=== PATIENT | female | born 1995 | race Caucasian/White ===

== ENCOUNTER → 2020-12-01 12:57 | Outpatient (CLI) | payer OTHER, SELFPAY ==
--- NOTE | ~2020-12-01 | US_ITS ---
EXAMINATION: US breast RT limited HISTORY: Mastodynia of the outer right breast TECHNIQUE: Limited ultrasound is performed in the outer right breast the area of patient's pain FINDINGS: There is no evidence of focal abnormal cystic or solid mass in the vicinity of the patient' s breast pain. IMPRESSION: No specific sonographic correlate is identified for the patient's right breast pain. Further evaluati on at this time should be based on clinical assessment. Continued follow-up physical examination is r ecommended. BI-RADS Category 1: Negative Reviewed, dictated and finalized at location A. IMPRESSION: No specific sonographic correlate is identified for the patient's right breast pain. Further evaluation at this time should be based on clinical assessment. C ontinued follow-up physical examination is recommended. BI-RADS Category 1: Negative
== END ==
PROVIDERS: Visit Provider Obstetrics & Gynecology
DX: N64.4 Mastodynia (principal)
CPT/HCPCS: 76642

== ENCOUNTER 2021-02-08 14:38 | Emergency (ER) | payer OTHER, SELFPAY ==
[2021-02-08 14:46] VITALS: BP 127/75; PULSE 83; RESP 16; TEMP 37.1; O2SAT 99
--- NOTE | 2021-02-08 14:52 | ED.URI ---
HPI - URI/Sore Throat General Stated Complaint: Coughing, Shortness of breath Time Seen by Provider: 02/08/21 14:52 Source: patient and RN notes reviewed History of Present Illness HPI Narrative: Patient is a 25-year-old female who presents the urgent care with complaints of a cough for 1 week. Patient states that she has been taking Jennifer during the day for the cough assuming it was related to her allergies . Patient denies of any fevers, nausea, vomiting, chest tightness or shortness of breath. Patient states the cough does keep her up at night. Denies of any use of syuj-stp-jkziibk cough medications. Denies of any other illness in the home. No other acute complaints. No acute distress noted. Patient aware of the plan of care. Some parts of this dictation were generated by voice recognition software and may contain typographical and/or grammatical inaccuracies. Related Data Allergies Allergy/AdvReac Type Severity Reaction Status Date / Time No Known Allergies Allergy Verified 02/08/21 14:52 Review of Systems Review of Systems: Narrative: CONSTITUTIONAL: Denies fever, chills, or sweats. EYES: Denies visual changes, redness, or discharge. ENT: Denies rhinorrhea, congestion, sore throat, or otalgia. CARDIOVASCULAR: Denies chest pain, palpitations, or edema. RESPIRATORY: Reports of cough without shortness of breath GASTROINTESTINAL: Denies abdominal pain, nausea, vomiting, or diarrhea. GENITOURINARY: Denies dysuria or hematuria. SKIN: Denies rash or itching. MUSCULOSKELETAL: Denies back pain, joint pain, or myalgia. NEUROLOGIC: Denies headache, numbness, or weakness. All other systems reviewed are negative, except as documented in HPI. [facility] Past Medical History Medical History (Updated 02/08/21 @ 15:06 by KATELYN Porras) Asthma Cataracts, bilateral Gestational diabetes Scoliosis Surgical History Surgical History S/P breast lumpectomy 2018 (benign) Family History Family History Mother Hypoglycemia Sibling Bipolar disorder Social History Social History (Updated 06/26/19 @ 10:14 by KATELYN Arboleda) Smoking status: Never smoker Comments At the time of my signature, I reviewed and agree with the nursing past medical, surgical, social, and family history. There is no relevant family history pertinent to the patient complaint. Exam Narrative: Exam Narrative: GENERAL: This is a well-nourished, well-developed patient, in no apparent distress. HEAD: normocephalic, atraumatic. EYES: PERRL. Sclera clear/white. Vision is grossly intact. EARS: External ears normal, auditory canals clear and without drainage, TMs normal without perforation. Hearing grossly intact. NOSE: External nose normal with no obvious nasal discharge, nares without redness, no rhinorrhea. THROAT: Mucous membranes moist, posterior pharynx clear. NECK: Neck supple, non-tender without lymphadenopathy, masses or thyromegaly. CARDIOVASCULAR: Regular rate and rhythm without murmurs, gallops, or rubs. RESPIRATORY: Clear to auscultation. Breath sounds equal bilaterally. No wheezes, rales, or rhonchi. SKIN: warm, intact with no suspicious lesions or rash, good texture and turgor. NEURO: awake, alert, and oriented to person, place and time. There were no obvious focal neurologic abnormalities. EXTREMITIES: No clubbing, cyanosis, or edema. Course Vital Signs Vital signs: Vital Signs Temperature 98.7 F 02/08/21 14:46 Pulse Rate 83 02/08/21 14:46 Respiratory Rate 16 02/08/21 14:46 Blood Pressure 127/75 02/08/21 14:46 Pulse Oximetry 99 02/08/21 14:46 Temperature 98.7 F 02/08/21 14:46 Pulse Rate 83 02/08/21 14:46 Respiratory Rate 16 02/08/21 14:46 Blood Pressure 127/75 02/08/21 14:46 Pulse Oximetry 99 02/08/21 14:46 Reviewed MDM - URI/Sore Throat MDM Narrative Medical decision m
== END 2021-02-08 15:10 | disposition home or self-care (01) ==
PROVIDERS: Emergency Provider Nurse Practitioner Family; PCP Internal Medicine
DX: R05 Cough (principal); J45.909 Unspecified asthma, uncomplicated; H26.9 Unspecified cataract; M41.9 Scoliosis, unspecified
CPT/HCPCS: 99213; G0463

== ENCOUNTER 2022-03-28 10:48 | Outpatient (RCR) | payer BC, SELFPAY ==
[2022-03-28 11:16] LABS: Hematocrit 34.4 % (37.0-47.0); Hemoglobin 11.7 g/dL (12.0-15.0)
[2022-03-28 13:36] LABS: HIV 1/2 Ab P24 Ag 8.89
[2022-03-28] MEDS: RHO(D) IMMUNE GLOBULIN 300 MCG/2 ML SYRINGE IM (15:55)
[2022-03-29 07:08] LABS: HIV 1/2 Ab P24 Ag Result Reactive (Negative)
[2022-03-29 07:44] LABS: HIVc Retest 1 9.02; HIVc Retest 2 9.04
[2022-04-01 19:37] LABS: HIV 1 2 Ag Ab 4th Gen w Rflxs Non-reactive (Non-reactive)
== END 2022-06-26 23:59 | disposition home or self-care (01) ==
LOC: ANHLAB 10:48
PROVIDERS: PCP Internal Medicine; Visit Provider Advanced Practice Midwife
DX: Z29.13 Encounter for prophylactic Rho(D) immune globulin (principal); Z11.4 Encounter for screening for human immunodeficiency virus [HIV]; O36.0190 Maternal care for anti-D [Rh] antibodies, unspecified trimester, not applicable or unspecified; E03.9 Hypothyroidism, unspecified; Z3A.00 Weeks of gestation of pregnancy not specified
CPT/HCPCS: 36415; 84443; 85014; 85018; 85461; 86703; 87389; 90384; 96372; G0432; J2790

== ENCOUNTER 2022-04-18 11:41 | Outpatient (RCR) | payer BC, SELFPAY ==
--- NOTE | ~2022-04-18 | US_ITS ---
EXAMINATION: US OB BPP wo non-stress DATE: 04/18/2022 12:52 INDICATION: Nonreactive nonstress test during third trimester TECHNIQUE: Real-time pelvic ultrasound was performed. The interpreting radiologist was not present fo r the study. COMPARISON: 07/18/2018 FINDINGS: There is a single living fetus in vertex presentation. The placenta is posterior. heart rate is 145 beats per minute (bpm). Biophysical profile performed by the technologist: breathing (30 sec sustained breathing in 30 minutes): 2 out of 2 movement (3 gross body movements in 30 minutes): 2 out of 2 tone (one episode of xlvgfda-zdqjizqlc-pvmfigb limb movement): 2 out of 2 Amniotic fluid pocket (2 cm): 2 out of 2 Total score: 8 out of 8 IMPRESSION: 1. Single living fetus in vertex presentation. 2. Biophysical profile 8 out of 8. Reviewed, dictated and finalized at location B.
[2022-04-18 12:42] VITALS: BP 103/69; PULSE 93
--- NOTE | 2022-04-18 13:10 | PC.NURSE ---
BPP 03/19.
== END 2022-07-17 23:59 | disposition home or self-care (01) ==
LOC: ANHOBOP 11:41
PROVIDERS: PCP Internal Medicine; Visit Provider Obstetrics & Gynecology
DX: O24.419 Gestational diabetes mellitus in pregnancy, unspecified control (principal); O36.8330 Maternal care for abnormalities of the fetal heart rate or rhythm, third trimester, not applicable or unspecified; Z3A.32 32 weeks gestation of pregnancy
CPT/HCPCS: 59025; 76819

== ENCOUNTER 2022-05-19 21:34 | Observation (INO) | payer BC, SELFPAY ==
[2022-05-19 21:49] VITALS: TEMP 36.6
[2022-05-19 22:00] VITALS: BMI 28.0
--- NOTE | 2022-05-19 23:31 | OBADM ---
This patient, Barbara Sandoval, admitted to the OB room Labor/Delivery/Recovery 106 for observation. Patient/family oriented to hospital policies and general routines including ID bracelet, bed and alarms, visiting hours, pain management, procedures, bathroom and other care routines, personal items, smoking policy, room service/diet, and visiting hours. Patient/Family are encouraged to report perceived risks to care and to ask questions if they do not understand what they are told or what they should do.
--- NOTE | 2022-05-22 19:49 | PM.OBTRLD ---
OB - Triage/Final Diagnosis Visit Information Date of evaluation: 05/19/22 Reason for evaluation: threatened labor Comments/Additional reasons for admission: I have assessed the risk for this patient, Barbara Fontana Lori, and determined that she would benefit from observation care.
== END 2022-05-19 23:40 | disposition home or self-care (01) ==
PROVIDERS: Admitting Provider Obstetrics & Gynecology; PCP Internal Medicine; Visit Provider Obstetrics & Gynecology
DX: O47.9 False labor, unspecified (principal); Z3A.00 Weeks of gestation of pregnancy not specified
CPT/HCPCS: G0378; G0379

== ENCOUNTER 2022-05-23 22:05 | Observation (INO) | payer BC, SELFPAY ==
--- NOTE | 2022-05-23 23:09 | OBADM ---
This patient, Barbara Sandoval, admitted to the OB room OB Post 116 for observation. Patient/family oriented to hospital policies and general routines including ID bracelet, bed and alarms, visiting hours, pain management, procedures, bathroom and other care routines, personal items, smoking policy, room service/diet, and visiting hours. Patient/Family are encouraged to report perceived risks to care and to ask questions if they do not understand what they are told or what they should do.
--- NOTE | 2022-05-23 23:15 | OBADM ---
This patient, Barbara Sandoval, admitted to the OB room OB Post 115 for observation. Patient/family oriented to hospital policies and general routines including ID bracelet, bed and alarms, visiting hours, pain management, procedures, bathroom and other care routines, personal items, smoking policy, room service/diet, and visiting hours. Patient/Family are encouraged to report perceived risks to care and to ask questions if they do not understand what they are told or what they should do.
--- NOTE | 2022-05-24 15:51 | PM.OBTRLD ---
OB - Triage/Final Diagnosis Visit Information Date of evaluation: 05/23/22 Reason for evaluation: threatened labor Comments/Additional reasons for admission: I have assessed the risk for this patient, Barbara Fontana Lori, and determined that she would benefit from observation care. Evaluation Vital signs: Vital Signs - 24 hr 05/23/22 22:05 Oxygen Delivery Room Air
== END 2022-05-23 23:27 | disposition home or self-care (01) ==
PROVIDERS: Admitting Provider Obstetrics & Gynecology; PCP Internal Medicine; Visit Provider Obstetrics & Gynecology
DX: O47.1 False labor at or after 37 completed weeks of gestation (principal); Z3A.37 37 weeks gestation of pregnancy; O24.419 Gestational diabetes mellitus in pregnancy, unspecified control
CPT/HCPCS: 59025; G0378; G0379

== ENCOUNTER 2022-05-26 20:26 | Observation (INO) | payer BC, SELFPAY ==
[2022-05-26 23:39] VITALS: BMI 27.1
--- NOTE | 2022-05-26 23:39 | OBADM ---
This patient, Barbara Sandoval, admitted to the OB room Labor/Delivery/Recovery 103 for observation. Patient/family oriented to hospital policies and general routines including ID bracelet, bed and alarms, visiting hours, pain management, procedures, bathroom and other care routines, personal items, smoking policy, room service/diet, and visiting hours. Patient/Family are encouraged to report perceived risks to care and to ask questions if they do not understand what they are told or what they should do.
--- NOTE | 2022-06-20 23:11 | PM.OBTRLD ---
OB - Triage/Final Diagnosis Visit Information Comments/Additional reasons for admission: I have assessed the risk for this patient, Barbara Sandoval, and determined that she would benefit from observation care. Final Diagnosis (1) False labor: Code(s): O47.9 - False labor, unspecified Status: Acute
== END 2022-05-26 23:31 | disposition home or self-care (01) ==
PROVIDERS: Admitting Provider Obstetrics & Gynecology; PCP Internal Medicine; Visit Provider Obstetrics & Gynecology
DX: O47.9 False labor, unspecified (principal); Z3A.00 Weeks of gestation of pregnancy not specified
CPT/HCPCS: G0378; G0379

== ENCOUNTER 2022-06-02 20:55 | Inpatient (IN) | payer BC, SELFPAY ==
[2022-06-02 21:07] VITALS: TEMP 36.8
--- OUTSIDE RECORDS SUMMARY | 2022-06-02 22:42 | XMS_ITS | Encounter Summary ---
:1995 Author Care Team Providers Name Role Phone Zen Sarmiento MD Primary Care Provider [phone] Reason for Visit OB visit OB [id number] EDC 06/13/2022 LMP 09/06/2021 Assessment and Plan Assessment Note Patient is _35__weeks . Discuss ed plan. 1. Routine care Discussion Note: None recorded.Patient educational handouts: No information available. Plan of Care Reminders Provider Appointments Ob Routine 06/06/2022 10:00AM LIZA CardonaM ? Nst 06/06/2022 9:00AM Nst, , EQUIP ? U/S OB BPP 06/06/2022 9:30AM Ultrasound T wo, TECH ? Ob Routine 06/13/2022 10:15AM LIZA CardonaM ? Nst 06/13/2022 9:00AM Nst, , EQUIP ? U/S OB BPP 06/13/2022 9:30AM Ultrasound, TECH Lab None recorded. ? ? Referral None recorded. ? ? Procedures None recorded. ? ? Surgeries None recorded. ? ? Imaging None recorded. ? ? Medications Name Start Date ? ? Daily ? levothyroxine 25 mcg tablet ? TAKE 1 TABLET BY MOUTH EVERY DAY OneTouch Ultra Test strips ? TEST BLOOD SUGAR 4 TIMES DAILY (FASTING AND [address] MEALS). Medications Administered None recorded. Vitals Height Weight BMI Blood Pressure 5 ft 6 in 143 lbs 23.1 kg/m2 108/74 mm[Hg] Results Lab Results None recorded. Allergies Code Code System Name Reaction Severity Onset 315636 RxNorm Eucalyptus Headache Mild to Moderate ? Problems Name Status Onset Date Source ? Active 11/30/2021 ? Gestational
--- OUTSIDE RECORDS SUMMARY | 2022-06-02 22:42 | XMS_ITS | Encounter Summary ---
:1995 Author Care Team Providers Name Role Phone Zen Sarmiento MD Primary Care Provider [phone] Reason for Visit None recorded. Assessment and Plan 1. Gestational diabetes mellitus, class A>1< ? non-stress test Discussion Note: None recorded.Patient educational handouts: No information available. Plan of Care Reminders Provider Appointments Ob Routine 06/06/2022 10:00AM LIZA CardonaM ? Nst 06/06/2022 9:00AM Nst, , EQUIP ? U/S OB BPP 06/06/2022 9:30AM Ultrasound T wo, TECH ? Ob Routine 06/13/2022 10:15AM Perla nava CNM ? Nst 06/13/2022 9:00AM Nst, , EQUIP ? U/S OB BPP 06/13/2022 9:30AM Ultrasound, TECH Lab None recorded. ? ? Referral None recorded. ? ? Procedures None recorded. ? ? Surgeries None recorded. ? ? Imaging Non-stress Test 05/30/2022 [place] Medications Name Start Date ? ? Daily ? levothyroxine 25 mcg tablet ? TAKE 1 TABLET BY MOUTH EVERY DAY OneTouch Ultra Test strips ? TEST BLOOD SUGAR 4 TIMES DAILY (FASTING AND [address] MEALS). Medications Administered None recorded. Vitals None recorded. Results Lab Results None recorded. Allergies Code Code System Name Reaction Severity Onset 538953 RxNorm Eucalyptus Headache Mild to Moderate ? Problems Name Status Onset Date Source ? Active 11/30/2021 ? Gestational Diabetes Mellitus Active 12/15/2021 ? Procedures Date Name Performed by ? 08/12/2017 Breast Surgery Information not zechariah ho Notes: LUMPECTPMY
--- OUTSIDE RECORDS SUMMARY | 2022-06-02 22:42 | XMS_ITS | Encounter Summary ---
:1995 Author Care Team Providers Name Role Phone Zen Sarmiento MD Primary Care Provider [phone] Reason for Visit None recorded. Assessment and Plan 1. Gestational diabetes mellitus, class A>1< ? US, obstetric, follow-up ? US, obstetric, biophysical profile + non-stress test Discussion Note: None recorded.Patient educational handouts: No information available. Plan of Care Reminders Provider Appointments Ob Routine 06/06/2022 LIZA HernandezM 10:00AM ? Nst 06/06/2022 Nst, , EQUIP 9:00AM ? U/S OB BPP 06/06/2022 Ultrasound Two, TECH 9:30AM ? Ob Routine 06/13/2022 LIZA HernandezM 10:15AM ? Nst 06/13/2022 Nst, , EQUIP 9:00AM ? U/S OB BPP 06/13/2022 Ultrasound, SHADY H 9:30AM Lab None recorded. ? ? Referral None recorded. ? ? Procedures None recorded. ? ? Surgeries None recorded. ? ? Imaging US, Obstetric, Follow-up 05/23/2022 [place] ? US, Obstetric, Biophysical 05/23/2022 Valerie [place] Profile + Non-stress Test Medications Name Start Date ? ? Daily ? levothyroxine 25 mcg tablet ? TAKE 1 TABLET BY MOUTH EVERY DAY OneTouch Ultra Test strips ? TEST BLOOD SUGAR 4 TIMES DAILY (FASTING AND [address] MEALS). Medications Administered None recorded. Vitals None recorded. Results Lab Results None recorded. Allergies
--- OUTSIDE RECORDS SUMMARY | 2022-06-02 22:42 | XMS_ITS | Encounter Summary ---
:1995 Author Care Team Providers Name Role Phone Zen Sarmiento MD Primary Care Provider [phone] Reason for Visit None recorded. Assessment and [...] None recorded. ? ? Imaging Non-stress Test 05/23/2022 [place] Medications Name Start Date ? ? Daily ? levothyroxine 25 mcg tablet ? TAKE 1 TABLET BY MOUTH EVERY DAY OneTouch Ultra Test strips ? TEST BLOOD SUGAR 4 TIMES DAILY (FASTING AND [address] MEALS). Medications Administered None recorded. Vitals None recorded. Results Lab Results None recorded. Allergies Code Code System Name Reaction Severity Onset 099941 RxNorm Eucalyptus Headache Mild to Moderate ? Problems Name Status Onset Date Source ? Active 11/30/2021 ? Gestational Diabetes Mellitus Active 12/15/2021 ? Procedures Date Name Performed by ? 08/12/2017 Breast Surgery Information not zechariah ho Notes: LUMPECTPMY
--- OUTSIDE RECORDS SUMMARY | 2022-06-02 22:42 | XMS_ITS | Encounter Summary ---
:1995 Author Care Team Providers Name Role Phone Zen Sarmiento MD Primary Care Provider [phone] Reason for Visit None recorded. Assessment and [...] None recorded. ? ? Imaging Non-stress Test 05/02/2022 [place] Medications Name Start Date ? ? Daily ? levothyroxine 25 mcg tablet ? TAKE 1 TABLET BY MOUTH EVERY DAY OneTouch Ultra Test strips ? TEST BLOOD SUGAR 4 TIMES DAILY (FASTING AND [address] MEALS). Medications Administered None recorded. Vitals None recorded. Results Lab Results None recorded. Allergies Code Code System Name Reaction Severity Onset 891596 RxNorm Eucalyptus Headache Mild to Moderate ? Problems Name Status Onset Date Source ? Active 11/30/2021 ? Gestational Diabetes Mellitus Active 12/15/2021 ? Procedures Date Name Performed by ? 08/12/2017 Breast Surgery Information not zechariah ho Notes: LUMPECTPMY
--- OUTSIDE RECORDS SUMMARY | 2022-06-02 22:42 | XMS_ITS | Encounter Summary ---
:1995 Author Care Team Providers Name Role Phone Zen Sarmiento MD Primary Care Provider [phone] Reason for Visit None recorded. Assessment and Plan 1. Gestational diabetes mellitus, class A>1< ? US, obstetric, biophysical profile + non-stress test Discussion Note: None recorded.Patient educational handouts: No information available. Plan of Care Reminders Provider Appointments Ob Routine 06/06/2022 Perla Louie CNM 10:00AM ? Nst 06/06/2022 Nst, , EQUIP 9:00AM ? U/S OB BPP 06/06/2022 Ultrasound Two, TECH 9:30AM ? Ob Routine 06/13/2022 LIZA HernandezM 10:15AM ? Nst 06/13/2022 Nst, , EQUIP 9:00AM ? U/S OB BPP 06/13/2022 Ultrasound, SHADY H 9:30AM Lab None recorded. ? ? Referral None recorded. ? ? Procedures None recorded. ? ? Surgeries None recorded. ? ? Imaging US, Obstetric, Biophysical 05/09/2022 [place] Profile + Non-stress Test Medications Name Start Date ? ? Daily ? levothyroxine 25 mcg tablet ? TAKE 1 TABLET BY MOUTH EVERY DAY OneTouch Ultra Test strips ? TEST BLOOD SUGAR 4 TIMES DAILY (FASTING AND [address] MEALS). Medications Administered None recorded. Vitals None recorded. Results Lab Results None recorded. Allergies Code Code System Name Reaction Severity Onset 008399 RxNorm Eucalyptus Headache Mild to Moderate ?
--- OUTSIDE RECORDS SUMMARY | 2022-06-02 22:42 | XMS_ITS | Encounter Summary ---
:1995 Author Care Team Providers Name Role Phone Zen Sarmiento MD Primary Care Provider [phone] Reason for Visit None recorded. Assessment and [...] recorded. ? ? Imaging US, Obstetric, Biophysical 05/30/2022 [place] Profile + Non-stress Test Medications [...] Code Code System Name Reaction Severity Onset 222403 RxNorm Eucalyptus Headache Mild to Moderate ?
--- OUTSIDE RECORDS SUMMARY | 2022-06-02 22:42 | XMS_ITS | Encounter Summary ---
:1995 Author Care Team Providers Name Role Phone Zen Sarmiento MD Primary Care Provider [phone] Reason for Visit None recorded. Assessment and [...] recorded. ? ? Imaging US, Obstetric, Biophysical 2022 [place] Profile + Non-stress Test Medications [...] Code Code System Name Reaction Severity Onset 008171 RxNorm Eucalyptus Headache Mild to Moderate ?
--- OUTSIDE RECORDS SUMMARY | 2022-06-02 22:42 | XMS_ITS ---
:1995 Author Care Team Providers Name Role Phone VICKY WILSON MD Primary Care Provider [phone] Allergies Code Code System Name Reaction Severity Status Onset 620840 RxNorm Eucalyptus Headache Mild to Moderate Active ? Medications Name Status Start Date Stop Date ? ? azithromycin 250 mg tablet Completed ? 11/01 TAKE 2 TABLETS BY MOUTH TODAY, THEN TAKE 1 TABLET DAILY FOR 4 D AYS benzonatate 100 mg capsule Completed ? 11/01 TAKE 1 CAPSULE BY MOUTH 3 TIMES A DAY NEEDED FOR COUGH codeine 10 mg-guaifenesin 100 mg/5 mL oral liquid Completed ? 11/01/2021 TAKE 10 ML BY MOUTH EVERY 4 HOURS NEEDED FOR COUGH FOR UP TO 5 DAYS. Daily Active ? Not available ID NOW COVID-19 Test Kit Completed ? 022 DIRECTED levothyroxine 25 mcg tablet Active ? Not available methylprednisolone 4 mg tablets in a dose pack Completed ? 11/01/2021 TAKE 6 TABLETS ON DAY 1 DIRECTED ON PACKAGE AND DECREASE BY 1 TAB EACH DAY FOR A TOTAL OF 6 DAYS OneTouch Ultra Test strips Active ? Not a vailable prednisone 10 mg tablet Completed ? 11/02/19 PLEASE SEE ATTACHED FOR DETAILED DIRECTIONS Problems Name Status Onset Date Source ? Active 11/30/2021 ? Gestational Diabetes Mellitus Active 12/15/2021 ? Procedures Date Name Performed by ? 08/12/2017 Breast Surgery Information not avai lable Notes: LUMPECTPMY 07/12/2017 Breast Biopsy Information not avai lable 11/30/2021 US, Obstetric, Nuchal Translucency [place] [address] [place] [address]
--- OUTSIDE RECORDS SUMMARY | 2022-06-02 22:42 | XMS_ITS | Encounter Summary ---
:1995 Author Care Team Providers Name Role Phone Zen Sarmiento MD Primary Care Provider [phone] Reason for Visit OB visit OB [id number] EDC 06/13/2022 LMP 09/06/2021 Assessment and Plan Assessment Note Patient is __37_weeks . Discuss ed plan. 1. Routine care [...] BMI Blood Pressure 5 ft 6 in 144 lbs 23.2 kg/m2 108/72 mm[Hg] Results Lab Results None recorded. Allergies Code Code System Name Reaction Severity Onset 211864 RxNorm Eucalyptus Headache Mild to Moderate ? Problems Name Status Onset Date Source ? Active 11/30/2021 ? Gestational D
--- OUTSIDE RECORDS SUMMARY | 2022-06-02 22:42 | XMS_ITS | Encounter Summary ---
:1995 Author Care Team Providers Name Role Phone Zen Sarmiento MD Primary Care Provider [phone] Reason for Visit None recorded. Assessment and [...] None recorded. ? ? Imaging Non-stress Test 05/09/2022 [place] Medications Name Start Date ? ? Daily ? levothyroxine 25 mcg tablet ? TAKE 1 TABLET BY MOUTH EVERY DAY OneTouch Ultra Test strips ? TEST BLOOD SUGAR 4 TIMES DAILY (FASTING AND [address] MEALS). Medications Administered None recorded. Vitals None recorded. Results Lab Results None recorded. Allergies Code Code System Name Reaction Severity Onset 887283 RxNorm Eucalyptus Headache Mild to Moderate ? Problems Name Status Onset Date Source ? Active 11/30/2021 ? Gestational Diabetes Mellitus Active 12/15/2021 ? Procedures Date Name Performed by ? 08/12/2017 Breast Surgery Information not zechariah ho Notes: LUMPECTPMY
--- OUTSIDE RECORDS SUMMARY | 2022-06-02 22:42 | XMS_ITS | Encounter Summary ---
:1995 Author Care Team Providers Name Role Phone Zen Sarmiento MD Primary Care Provider [phone] Reason for Visit OB visit OB [id number] EDC 06/13/2022 LMP 09/06/2021 Assessment and Plan Assessment Note Patient is _36__weeks . Discuss ed plan. 1. Routine care [...] ft 6 in 143 lbs 23.1 kg/m2 111/76 mm[Hg] Results Lab Results None recorded. Allergies Code Code System Name Reaction Severity Onset 704001 RxNorm Eucalyptus Headache Mild to Moderate ? Problems Name Status Onset Date Source ? Active 11/30/2021 ? Gestational Di
--- OUTSIDE RECORDS SUMMARY | 2022-06-02 22:42 | XMS_ITS | Encounter Summary ---
:1995 Author Care Team Providers Name Role Phone Zen Sarmiento MD Primary Care Provider [phone] Reason for Visit None recorded. Assessment and [...] None recorded. ? ? Imaging Non-stress Test 2022 [place] Medications Name Start Date ? ? Daily ? levothyroxine 25 mcg tablet ? TAKE 1 TABLET BY MOUTH EVERY DAY OneTouch Ultra Test strips ? TEST BLOOD SUGAR 4 TIMES DAILY (FASTING AND [address] MEALS). Medications Administered None recorded. Vitals None recorded. Results Lab Results None recorded. Allergies Code Code System Name Reaction Severity Onset 945218 RxNorm Eucalyptus Headache Mild to Moderate ? Problems Name Status Onset Date Source ? Active 11/30/2021 ? Gestational Diabetes Mellitus Active 12/15/2021 ? Procedures Date Name Performed by ? 08/12/2017 Breast Surgery Information not zechariah ho Notes: LUMPECTPMY
--- OUTSIDE RECORDS SUMMARY | 2022-06-02 22:42 | XMS_ITS | Encounter Summary ---
:1995 Author Care Team Providers Name Role Phone Zen Sarmiento MD Primary Care Provider [phone] Reason for Visit None recorded. Assessment and [...] recorded. ? ? Imaging US, Obstetric, Biophysical 05/02/2022 [place] Profile + Non-stress Test Medications [...] Code Code System Name Reaction Severity Onset 015443 RxNorm Eucalyptus Headache Mild to Moderate ?
--- OUTSIDE RECORDS SUMMARY | 2022-06-02 22:42 | XMS_ITS | Encounter Summary ---
:1995 Author Care Team Providers Name Role Phone Zen Sarmiento MD Primary Care Provider [phone] Reason for Visit OB visit [id number] EDC 06/13/2022 LMP 09/06/2021 Assessment and Plan Assessment Note Patient is _38__weeks . Discuss ed plan. 1. Routine care [...] BMI Blood Pressure 5 ft 6 in 145 lbs 23.4 kg/m2 129/86 mm[Hg] Results Lab Results None recorded. Allergies Code Code System Name Reaction Severity Onset 596525 RxNorm Eucalyptus Headache Mild to Moderate ? Problems Name Status Onset Date Source ? Active 11/30/2021 ? Gestational Di
--- OUTSIDE RECORDS SUMMARY | 2022-06-02 22:42 | XMS_ITS | Encounter Summary ---
:1995 Author Care Team Providers Name Role Phone Zen Sarmiento MD Primary Care Provider [phone] Reason for Visit OB visit OB [id number] EDC 06/13/2022 LMP 09/06/2021 Assessment and Plan Assessment Note Patient is __34_weeks . Discuss ed plan. 1. Routine care [...] BMI Blood Pressure 5 ft 6 in 139 lbs 22.4 kg/m2 90/59 mm[Hg] Results Lab Results None recorded. Allergies Code Code System Name Reaction Severity Onset 588281 RxNorm Eucalyptus Headache Mild to Moderate ? Problems Name Status Onset Date Source ? Active 11/30/2021 ? Gestational D
--- OUTSIDE RECORDS SUMMARY | 2022-06-02 22:43 | XMS_ITS | Encounter Summary ---
:1995 Author Care Team Providers Name Role Phone Zen Sarmiento MD Primary Care Provider [phone] Reason for Visit None recorded. Assessment and Plan 1. Gestational diabetes mellitus, class A>1< ? US, obstetric, follow-up Discussion Note: None recorded.Patient educational handouts: No [...] recorded. ? ? Imaging US, Obstetric, Follow-up 04/27/2022 Esteban guallpa Medications Name Start Date ? ? Daily ? levothyroxine 25 mcg tablet ? TAKE 1 TABLET BY MOUTH EVERY DAY OneTouch Ultra Test strips ? TEST BLOOD SUGAR 4 TIMES DAILY (FASTING AND [address] MEALS). Medications Administered None recorded. Vitals None recorded. Results Lab Results None recorded. Allergies Code Code System Name Reaction Severity Onset 132031 RxNorm Eucalyptus Headache Mild to Moderate ? Problems Name Status Onset Date Source ? Active 11/30/2021 ? Gestational Diabetes Mellitus Active 12/15/2021 ? Procedures Date Name Performed by ?
--- OUTSIDE RECORDS SUMMARY | 2022-06-02 22:43 | XMS_ITS | Encounter Summary ---
:1995 Author Care Team Providers Name Role Phone Zen Sarmiento MD Primary Care Provider [phone] Reason for Visit OB visit OB [id number] EDC 06/13/2022 LMP 09/06/2021 Assessment and Plan Assessment Note Patient is _32_weeks . Discusse d plan. 1. Routine care Discussion Note: None [...] BMI Blood Pressure 5 ft 6 in 137 lbs 22.1 kg/m2 106/59 mm[Hg] Results Lab Results None recorded. Allergies Code Code System Name Reaction Severity Onset 751398 RxNorm Eucalyptus Headache Mild to Moderate ? Problems Name Status Onset Date Source ? Active 11/30/2021 ? Gestational Di
--- OUTSIDE RECORDS SUMMARY | 2022-06-02 22:43 | XMS_ITS | Encounter Summary ---
:1995 Author Care Team Providers Name Role Phone Zen Sarmiento MD Primary Care Provider [phone] Reason for Visit OB visit OB [id number] EDC 06/13/2022 LMP 09/06/2021 Assessment and Plan Assessment Note Patient is _33__weeks . Discuss ed plan. 1. Routine care [...] BMI Blood Pressure 5 ft 6 in 140 lbs 22.6 kg/m2 115/75 mm[Hg] Results Lab Results None recorded. Allergies Code Code System Name Reaction Severity Onset 696295 RxNorm Eucalyptus Headache Mild to Moderate ? Problems Name Status Onset Date Source ? Active 11/30/2021 ? Gestational
--- OUTSIDE RECORDS SUMMARY | 2022-06-02 22:43 | XMS_ITS | Encounter Summary ---
:1995 Author Care Team Providers Name Role Phone Zen Sarmiento MD Primary Care Provider [phone] Reason for Visit OB visit OB [id number] EDC 06/13/2022 LMP 09/06/2021 Assessment and Plan Assessment Note Patient is _29__weeks . Discuss ed plan. 1. Routine care [...] BMI Blood Pressure 5 ft 6 in 138 lbs 22.3 kg/m2 99/64 mm[Hg] Results Lab Results None recorded. Allergies Code Code System Name Reaction Severity Onset 569622 RxNorm Eucalyptus Headache Mild to Moderate ? Problems Name Status Onset Date Source ? Active 11/30/2021 ? Gestational Amanda
--- OUTSIDE RECORDS SUMMARY | 2022-06-02 22:43 | XMS_ITS | Encounter Summary ---
:1995 Author Care Team Providers Name Role Phone Zen Sarmiento MD Primary Care Provider [phone] Reason for Visit OB visit OB [id number] EDC 06/13/2022 LMP 09/06/2021 Assessment and Plan Assessment Note Patient is __31_weeks . Discuss ed plan. 1. Routine care [...] ft 6 in 138 lbs 22.3 kg/m2 115/72 mm[Hg] Results Lab Results None recorded. Allergies Code Code System Name Reaction Severity Onset 816972 RxNorm Eucalyptus Headache Mild to Moderate ? Problems Name Status Onset Date Source ? Active 11/30/2021 ? Gestational Di
--- OUTSIDE RECORDS SUMMARY | 2022-06-02 22:43 | XMS_ITS | Encounter Summary ---
:1995 Author Care Team Providers Name Role Phone Zen Sarmiento MD Primary Care Provider [phone] Reason for Visit None recorded. Assessment and [...] None recorded. ? ? Imaging Non-stress Test 04/18/2022 [place] Medications Name Start Date ? ? Daily ? levothyroxine 25 mcg tablet ? TAKE 1 TABLET BY MOUTH EVERY DAY OneTouch Ultra Test strips ? TEST BLOOD SUGAR 4 TIMES DAILY (FASTING AND [address] MEALS). Medications Administered None recorded. Vitals None recorded. Results Lab Results None recorded. Allergies Code Code System Name Reaction Severity Onset 077297 RxNorm Eucalyptus Headache Mild to Moderate ? Problems Name Status Onset Date Source ? Active 11/30/2021 ? Gestational Diabetes Mellitus Active 12/15/2021 ? Procedures Date Name Performed by ? 08/12/2017 Breast Surgery Information not zechariah ho Notes: LUMPECTPMY
--- OUTSIDE RECORDS SUMMARY | 2022-06-02 22:43 | XMS_ITS | Encounter Summary ---
:1995 Author Care Team Providers Name Role Phone Zen Sarmiento MD Primary Care Provider [phone] Reason for Visit None recorded. Assessment and Plan 1. Gestational diabetes mellitus, class A>1< ? US, obstetric, biophysical profile Discussion Note: None recorded.Patient educational handouts: No information available. Plan of Care Reminders Provider Appointments Ob Routine 06/06/2022 Perla Louie , LIZAM 10:00AM ? Nst 06/06/2022 Nst, , EQUIP 9:00AM ? U/S OB BPP 06/06/2022 Ultrasound Two, TECH 9:30AM ? Ob Routine 06/13/2022 Perla Louie , CNM 10:15AM ? Nst 06/13/2022 Nst, , EQUIP 9:00AM ? U/S OB BPP 06/13/2022 Ultrasound, SHADY H 9:30AM Lab None recorded. ? ? Referral None recorded. ? ? Procedures None recorded. ? ? Surgeries None recorded. ? ? Imaging US, Obstetric, Biophysical 04/18/2022 Vlaerie kathleen Profile Medications Name Start Date ? ? Daily ? levothyroxine 25 mcg tablet ? TAKE 1 TABLET BY MOUTH EVERY DAY OneTouch Ultra Test strips ? TEST BLOOD SUGAR 4 TIMES DAILY (FASTING AND [address] MEALS). Medications Administered None recorded. Vitals None recorded. Results Lab Results None recorded. Allergies Code Code System Name Reaction Severity Onset 364848 RxNorm Eucalyptus Headache Mild to Moderate ? Problems
--- OUTSIDE RECORDS SUMMARY | 2022-06-02 22:43 | XMS_ITS | Encounter Summary ---
:1995 Author Care Team Providers Name Role Phone Zen Sarmiento MD Primary Care Provider [phone] Reason for Visit None recorded. Assessment and [...] None recorded. ? ? Imaging Non-stress Test 04/27/2022 [place] Medications Name Start Date ? ? Daily ? levothyroxine 25 mcg tablet ? TAKE 1 TABLET BY MOUTH EVERY DAY OneTouch Ultra Test strips ? TEST BLOOD SUGAR 4 TIMES DAILY (FASTING AND [address] MEALS). Medications Administered None recorded. Vitals None recorded. Results Lab Results None recorded. Allergies Code Code System Name Reaction Severity Onset 450970 RxNorm Eucalyptus Headache Mild to Moderate ? Problems Name Status Onset Date Source ? Active 11/30/2021 ? Gestational Diabetes Mellitus Active 12/15/2021 ? Procedures Date Name Performed by ? 08/12/2017 Breast Surgery Information not zechariah ho Notes: LUMPECTPMY
--- OUTSIDE RECORDS SUMMARY | 2022-06-02 22:43 | XMS_ITS | Encounter Summary ---
:1995 Author Care Team Providers Name Role Phone Zen Sarmiento MD Primary Care Provider [phone] Reason for Visit None recorded. Assessment and [...] recorded. ? ? Imaging US, Obstetric, Follow-up 04/11/2022 Esteban guallpa Medications Name Start Date ? ? Daily ? levothyroxine 25 mcg tablet ? TAKE 1 TABLET BY MOUTH EVERY DAY OneTouch Ultra Test strips ? TEST BLOOD SUGAR 4 TIMES DAILY (FASTING AND [address] MEALS). Medications Administered None recorded. Vitals None recorded. Results Lab Results None recorded. Allergies Code Code System Name Reaction Severity Onset 521468 RxNorm Eucalyptus Headache Mild to Moderate ? Problems Name Status Onset Date Source ? Active 11/30/2021 ? Gestational Diabetes Mellitus Active 12/15/2021 ? Procedures Date Name Performed by ?
[2022-06-02 22:47] VITALS: TEMP 36.9
[2022-06-02 23:08] LABS: Glucose Point of Care 102 mg/dl (65-105)
[2022-06-02 23:12] VITALS: BMI 23.1
[2022-06-02 23:12] LABS: Basophils Percent Auto 0.4 % (0.2-1.2); Eosinophils Absolute Auto 0.1 K/mm3 (0-0.3); Eosinophils Percent Auto 0.7 % (0-4.4); Hematocrit 35.9 % (37.0-47.0); Hemoglobin 12.2 g/dL (12.0-15.0); Immature Granulocyte Absolute 0.05 K/mm3 (0.00-0.031); Immature Granulocyte Percent A 0.5 % (0-0.5); Lymphocytes Absolute Auto 1.98 K/mm3 (0.9-3.2); Mean Corpuscular Hemoglobin 27.5 pg (26-34); Mean Platelet Volume 11.2 fl (7.4-10.4); Monocytes Absolute Auto 0.6 K/mm3 (0.1-0.6); Neutrophils Absolute Auto 7.7 K/mm3 (1.3-6.7); Neutrophils Percent Auto 73.4 % (45.5-73.1); Platelet Count Result 183 k/mm3 (150-375); Red Blood Count 4.43 M/mm3 (4.2-5.4); Red Cell Distribution Width 12.9 % (11.5-14.5); White Blood Count 10.4 K/mm3 (4.5-10.0)
--- NOTE | 2022-06-02 23:15 | LDADM ---
This patient, Barbara Sandoval, was admitted to Labor/Delivery/Recovery 104 on 06/02/22 at 20:55. Plans for labor, pain management and were discussed with patient. Patient/family oriented to hospital policies and general routines including ID bracelet, bed and alarms, visiting hours, pain management, procedures, bathroom and other care routines, personal items, smoking policy, room service/diet and guest tray routines, security routines, and visiting hours. Patient/Family are encouraged to report perceived risks to care and to ask questions if they do not understand what they are told or what they should do. See OBIX for further documentation.
[2022-06-02 23:27] VITALS: BP 122/69; PULSE 96
[2022-06-03] VITALS (36 sets, daily range): BP systolic 97–135; BP diastolic 57–113; PULSE 67–110; RESP 16–18; TEMP 36.3–37.1; O2SAT 98
[2022-06-03 03:07] LABS: Glucose Point of Care 110 mg/dl (65-105)
[2022-06-03 07:04] LABS: Glucose Point of Care 85 mg/dl (65-105)
--- NOTE | 2022-06-03 08:59 | WPDOBADMIT ---
Obstetrics - Admit Note Admission Note: record reviewed. No pertinent additions to the history and/or any subsequent changes in the physical findings that are not consistent with the expected course of the were found. Pt admitted overnight for early labor and nonreassuring heart tracing. Currently FHR category 1, contractions Q 2-3 minutes, moderate to palpation. discussed with pt options and will augment with pitocin, declines amniotomy, hx GDMA1, anticipate vaginal delivery. Additions to the history and/or subsequent changes in the physical findings follow. None.
[2022-06-03] MEDS: LACTATED RINGERS 1,000 ML 125 ML IV CONT (09:29)
[2022-06-03] MEDS: OXYTOCIN 30 UNITS/NS 500 ML 30 UNITS/500 ML BAG IV CONT (09:31)
[2022-06-03 10:50] LABS: Glucose Point of Care 90 mg/dl (65-105)
--- NOTE | 2022-06-03 15:20 | PM.OBPNVD ---
OB - PN: Subj Subjective Date/time seen: 06/03/22 15:20 SVE 3/80/-2 AROM moderate amount of clear odorless fluid anticipate vaginal delivery OB - PN: Obj Data Labs CBC & Chem 7: 06/02/22 23:02 Labs: Laboratory Results - last 24 hr 06/02/22 06/02/22 06/02/22 23:02 23:02 23:05 WBC 10.4 H RBC 4.43 Hgb 12.2 Hct 35.9 L MCV 81.0 MCH 27.5 MCHC 34.0 RDW 12.9 Plt Count 183 MPV 11.2 H Immature Gran % (Auto) 0.5 Neut % (Auto) 73.4 H Lymph % (Auto) 19.0 Stone % (Auto) 6.0 Eos % (Auto) 0.7 Baso % (Auto) 0.4 Lymph # (Auto) 1.98 Stone # (Auto) 0.6 Eos # (Auto) 0.1 Baso # (Auto) 0.0 Abs Immat Gran (auto) 0.05 H Absolute Neuts (auto) 7.7 H Absolute Nucleated RBC 0.0 Nucleated RBC % 0.0 POC Capillary Glucose 102 Blood Type A Negative Antibody Screen Positive Antibody Identification Passive Due to RH Imm Glob Antigen Identification Cancelled KENDRA, IgG Interpret Not Performed KENDRA, Poly Interpret Negative KENDRA, Complement Interp Not Performed 06/03/22 06/03/22 06/03/22 03:05 07:00 10:47 WBC RBC Hgb Hct MCV MCH MCHC RDW Plt Count MPV Immature Gran % (Auto) Neut % (Auto) Lymph % (Auto) Stone % (Auto) Eos % (Auto) Baso % (Auto) Lymph # (Auto) Stone # (Auto) Eos # (Auto) Baso # (Auto) Abs Immat Gran (auto) Absolute Neuts (auto) Absolute Nucleated RBC Nucleated RBC % POC Capillary Glucose 110 H 85 90 Blood Type Antibody Screen Antibody Identification Antigen Identification KENDRA, IgG Interpret KENDRA, Poly Interpret KENDRA, Complement Interp OB - PN A/P Time Spent With Patient Time: Total time spent is greater than 50% in coordination of care (as documented) at patient's floor/unit and/or counseling patient:
[2022-06-03 16:05] LABS: Glucose Point of Care 87 mg/dl (65-105)
--- NOTE | 2022-06-03 17:19 | PM.OBPRVD ---
OB - Delivery Note Procedure Delivery date: 06/03/22 Procedure: vaginal delivery Events: Gestational Diabetes Delivery augmentation: Rupture of Membranes and Pitocin Delivery monitor: None and External FHT Route of delivery: Episiotomy description: None Laceration Description: Perineal - 1st Degree Delivery repair: vicryl Specimen: Yes Quantitative Blood Loss (ml): 125 Anesthesia type: Local Disposition: Floor [place] Baby Date of : 06/03/22 Time of : 17:00 Weeks of gestation at delivery: 38 gender: Female Weight (pounds): 6 Weight (ounces): 6 presentation: vertex position: Right Occiput Anterior Placenta delivery description: Spontaneous Cord Vessel Description: 3 Vessels, Nuchal Cord, Loose and Delayed Cord Clamping score one minute: 9 score ten minutes: 9 Narrative: mother and baby skin to skin in stable condition
[2022-06-03] MEDS: BENZOCAINE 20% AER SPR (*SP) 56 GM CAN 1 SPRAY TOPICAL (19:23)
[2022-06-03] MEDS: WITCH HAZEL 40 PADS 1 PAD TOPICAL (19:23)
[2022-06-04 04:45] VITALS: BP 106/74; PULSE 84; RESP 18; TEMP 36.7; O2SAT 98
[2022-06-04 05:08] LABS: Hematocrit 30.6 % (37.0-47.0); Hemoglobin 10.4 g/dL (12.0-15.0)
[2022-06-04] MEDS: LEVOTHYROXINE SODIUM 25 MCG TABLET PO (06:45)
--- NOTE | 2022-06-04 07:14 | P.PNOB_ITS ---
OB - PN: Subj Subjective Date/time seen: 06/04/22 07:14 Patient comments: no complaints and pain well controlled baby status: doing well and nursing well [place] feeding status: exclusively breast feeding Narrative: Would like DC home today. OB - PN: Obj Data Labs CBC & Chem 7: 06/04/22 04:43 Labs: Laboratory Results - last 24 hr 06/02/22 06/03/22 06/03/22 23:02 10:47 15:55 Hgb Hct POC Capillary Glucose 90 87 Blood Type Antibody Screen Antibody Identification Passive Due to RH Imm Glob Antigen Identification Cancelled Screen Baby's Blood Type Baby's KENDRA Doses of RhIg Required 06/04/22 06/04/22 04:43 04:43 Hgb 10.4 L Hct 30.6 L POC Capillary Glucose Blood Type A Negative Antibody Screen TNP Antibody Identification Antigen Identification Screen Negative Baby's Blood Type A pos Baby's KENDRA Negative Doses of RhIg Required 1 OB - PN A/P Plan day: 1 Plan: routine care and discharge home Time Spent With Patient Time: Total time spent is greater than 50% in coordination of care (as documented) at patient's floor/unit and/or counseling patient: Time with patient: less than 15 minutes Exam Narrative: NAD abdomen soft, nontender, fundus firm below the umbilicus Extremities nontender, 1+ edema
--- NOTE | 2022-06-04 07:17 | PM.OBDSVD ---
DS: Admitting Diagnosis Discharge Date 06/04/22 Admitting Diagnosis term IUP, GDM, late deceleration DS: Discharge Diagnosis Discharge Diagnosis (1) , delivered: Code(s): O80 - Encounter for full-term uncomplicated delivery Status: Acute OB - DS: Summary Hospital Course Hospital Course: Barbara was admitted for contractions and had a late deceleration on monitoring. For this reason her labor was augmented with pitocin. She proceeded to have an uncomplicated vaginal delivery and course. She was discharged home on PPD 1. OB Procedures : NST and Ultrasound OB Procedures Intrapartum: Spontaneous Vag Delivery OB Procedures: : None Peripartum Data Infant Delivery Method: Natural Vaginal complications: none Status at Discharge Functional status at discharge: independent ambulation Time Spent with Patient Time attestation: Total time spent providing and/or coordinating discharge services: Exam Narrative: NAD abdomen soft, appropriately tender Ext non tender, 1+ edema DS: Data Data Completed and Pending Pending studies at discharge: Pending at discharge 06/03/22 18:10 Surgical [PTH] Routine Labs on day of discharge: Labs from last 24 hours 06/04/22 06/04/22 06/03/22 04:43 04:43 15:55 Hgb 10.4 L Hct 30.6 L POC Capillary Glucose 87 Blood Type A Negative Antibody Screen TNP Antibody Identification Antigen Identification Screen Negative Baby's Blood Type A pos Baby's KENDRA Negative Doses of RhIg Required 1 06/03/22 06/02/22 10:47 23:02 Hgb Hct POC Capillary Glucose 90 Blood Type Antibody Screen Antibody Identification Passive Due to RH Imm Glob Antigen Identification Cancelled Screen Baby's Blood Type Baby's KENDRA Doses of RhIg Required Discharge Plan Discharge Attending physician on discharge: Patricia Horner Discharging Clinician: Patricia Horner Anticipated Discharge Date/Time: 06/04/22 19:00 Patient Disposition: Home, Self-Care Activity: pelvic rest Diet: regular Patient Instructions: Antibiotic Form Stand Alone Forms: General Discharge Information Follow-up/Referrals: Perla Louie CNM [Certified Nurse Employee Wellness/Fitness Coordinator] - 4 Weeks Discharge Medications: Continued levothyroxine 25 mcg capsule 25 mcg PO DAILY prenat.vits,mayank,[id number] Tablet 1 tablet PO DAILY Date of admission: 06/02/22 20:55 Primary Care Provider: Torsten,Zen Bell Admitting Provider: Velia Fan Attending physician on admission: Perla Louie Condition: Stable
[2022-06-04 07:29] LABS: Rapid Plasma Reagin Non-Reactive (NonReactive)
[2022-06-04 07:55] VITALS: BP 100/63; PULSE 80; RESP 16; TEMP 36.3; O2SAT 99
[2022-06-04] MEDS: MULTIVIT/MIN/PREN/FOL AC/IRON TABLET 1 TAB PO (08:29)
[2022-06-04] MEDS: RHO(D) IMMUNE GLOBULIN 300 MCG/2 ML SYRINGE IM (10:24)
[2022-06-04 11:32] VITALS: BP 106/63; PULSE 89; RESP 16; TEMP 36.4; O2SAT 98
--- NOTE | 2022-06-04 13:49 | PC.NURSE ---
[id number] Introductions were made, then consulted with patient to assess needs related to . Mother led the conversation with her?plans to feed?her infant. She states infant is able to latch independently, however, the?experience so far sometimes has infant latching shallowly, then mother detaches and encourages a deeper latch. Resources provided for inpatient and outpatient services using a resource guide and mom/baby guide. Mother voiced understanding of information and request assistance with tips and techniques remembering the stage. Reminded parents to use good handwashing technique to prevent infection. Mother is feeding appropriately for growth of and understands stimulating infant to eat if needed. has had appropriate feedings in the last 24 hours meets the outcomes for weight, output and jaundice at this time. Mother states she is confident to continue effectively breastfeed her infant at home or when to call for assistance and denies any additional assistance or education at this time. Reinforced understanding of milk production, transition of milk, signs of adequate intake, prevention/relief of engorgement, responsive after visualizing feeding cues, the different methods of stimulating infant to breastfeed 2-3 hours after the start of the last feeding, community resources, medication information reviewed per [employer] and when to call a provider using the resource of the mom and baby guide/[facility] website. Mother voiced understanding of the education shared. Reported to the primary RN.
[2022-06-04 16:30] VITALS: BP 104/71; PULSE 74; RESP 16; TEMP 36.9; O2SAT 99
[2022-06-06 10:22] VITALS: BP 107/71; PULSE 94; RESP 16; TEMP 36.6; O2SAT 98
== END 2022-06-04 19:15 | disposition home or self-care (01) | DRG 807 ==
LOC: ANHOB2 06-04 18:36 → ANHLDR 06-06 10:03 → ANHOB2 06-06 10:03
PROVIDERS: Advanced Practice Midwife; Admitting Provider Obstetrics & Gynecology; PCP Internal Medicine; Visit Provider Obstetrics & Gynecology
DX: O24.429 Gestational diabetes mellitus in childbirth, unspecified control (principal); Z37.0 Single live birth; Z3A.38 38 weeks gestation of pregnancy; O69.81X0 Labor and delivery complicated by cord around neck, without compression, not applicable or unspecified; O70.0 First degree perineal laceration during delivery; O62.3 Precipitate labor; O36.8330 Maternal care for abnormalities of the fetal heart rate or rhythm, third trimester, not applicable or unspecified
CPT/HCPCS: 36415; 82948; 85014; 85018; 85025; 85461; 86592; 86850; 86870; 86880; 86900; 86901; 86902; 86971; 88307; 90384; A9270; J2590; J2790; J7120